=== PATIENT | female | born 1985 | race Caucasian/White ===

== ENCOUNTER 2016-11-24 05:28 | Emergency (ER) | payer OTHER ==
[~2016-11-24] VITALS: Ht 177.8 cm; Wt 113.6 kg
[~2016-11-24 05:28] MED LIST: ACNE MEDICATION; ADD MED; ADDERALL30 MG PO; AMOXICILLIN 50500 MG PO; AURALGAN 54 MG/10 ML OT; CEPHALEXIN250 M1 PO; CIPRO 500MG TA500 MG PO; CLARITIN D TAB1 TAB; CONCERTA36 MG PO; CORTISPORIN OTI10 ML OT; DOXYCYCLINE 10100 MG PO; FLEXERIL 1010 MG/TAB PO; IMPLANON68 MG ID; LOMOTIL 0.025 M1 TAB PO; LORTAB 5/500 501 TAB PO; MACROBID 1100 MG/CAP PO; MINOCYCLIN100 MG/CAP PO; MONODOX; NO HOME MEDICATIONS; NORCO 325 MG-51 TAB PO; PROMETHAZINE12.5 M5 PO; TUSS PO; ZITHROMAX 250M250 MG PO; ZOFRAN4 MG PO
[2016-11-24 05:32] VITALS: BP 154/61; TEMP 98.1
[2016-11-24] MEDS ORDERED: ULTRAM 50MG TAB50 MG PO (05:55)
[2016-11-24 06:12] VITALS: PULSE 80
== END 2016-11-24 06:12 | disposition home or self-care (01) ==
LOC: COL.ER 05:28
DX: R59.0 Localized enlarged lymph nodes (principal); H69.82 Other specified disorders of Eustachian tube, left ear; R42 Dizziness and giddiness; R51 Headache
CPT/HCPCS: J1885

== ENCOUNTER 2017-04-23 14:23 | Emergency (ER) | payer MEDICAID ==
[~2017-04-23] VITALS: Ht 175.3 cm; Wt 113.6 kg
[~2017-04-23 14:23] MED LIST changes: +ULTRAM 50MG TAB50 MG PO
[2017-04-23 14:32] VITALS: TEMP 97.8
[2017-04-23 15:28] LABS: PH 5 (5-8); SQUAMOUS EPITHELIAL None Seen /hpf; URINE APPEARANCE Clear; URINE BACTERIA None Seen /hpf; URINE BILIRUBIN Negative (NEGATIVE); URINE BLOOD Negative (NEGATIVE); URINE COLOR Yellow; URINE GLUCOSE Negative (NEGATIVE); URINE KETONE Negative (NEGATIVE); URINE RBC 0-2 /hpf; URINE UROBILINOGEN Negative (NEGATIVE); URINE WBC 0-2 /hpf
[2017-04-23 15:28] LABS: BASO % 0.2 % (0.0-2.0); EOS # 0.1 (0.0-0.7); EOS % 0.9 % (0-4.0); GRAN # 7.4 (1.4-6.5); GRAN % 70.4 % (42.2-75.2); HEMATOCRIT 40.1 % (37.0-47.0); HEMOGLOBIN 13.5 g/dl (12.5-16.0); LYMPH # 2.2 (1.2-3.4); LYMPH % 20.6 % (20.0-51.0); MEAN CELL VOLUME 88 fl (80.0-100.0); MEAN CORPUSCULAR HEMOGLOBIN 30 pg (27.0-31.0); MEAN CORPUSCULAR HGB CONC 34 g/dl (33.0-37.0); MEAN PLATELET VOLUME 10.9 fl (7.4-10.4); MONO # 0.8 (0.1-0.6); MONO % 7.7 % (1.7-9.3); PLATELET COUNT 185 K/mm3 (130-400); RED BLOOD COUNT 4.57 M/mm3 (4.10-5.30); REDCELL DISTRIBUTION WIDTH-CV 13.2 % (11.5-14.5); WHITE BLOOD COUNT 10.5 K/mm3 (4.8-10.8)
[2017-04-23 15:39] LABS: ADJUSTED CALCIUM 9.1 mg/dL (8.4-10.2); ALBUMIN 3.8 gm/dL (3.5-5.0); BILIRUBIN,TOTAL 0.4 mg/dL (0.0-1.0); CALCIUM 8.9 mg/dL (8.4-10.2); CREATININE, serum 0.75 mg/dL (0.52-1.25); POTASSIUM 3.7 mmol/L (3.4-5.0); TOTAL PROTEIN 7.3 gm/dL (6.4-8.2)
[2017-04-23 16:48] VITALS: BP 134/78; PULSE 78
== END 2017-04-23 16:49 | disposition home or self-care (01) ==
LOC: COL.ER 14:23
PROVIDERS: Emergency Medicine
DX: R10.84 Generalized abdominal pain (principal); R51 Headache; Z90.49 Acquired absence of other specified parts of digestive tract; Z98.890 Other specified postprocedural states; Z87.19 Personal history of other diseases of the digestive system
CPT/HCPCS: J1885; J2405; J7030

== ENCOUNTER 2018-02-05 16:20 | Outpatient (RCR) | payer MEDICAID | END 2018-05-06 | disposition home or self-care (01) | LOC: WSC → WSPT 16:20 → WSC 16:20 | DX: S93.402D Sprain of unspecified ligament of left ankle, subsequent encounter (principal); S93.401D Sprain of unspecified ligament of right ankle, subsequent encounter; Z87.39 Personal history of other diseases of the musculoskeletal system and connective tissue; Z79.2 Long term (current) use of antibiotics; Z79.899 Other long term (current) drug therapy | CPT/HCPCS: G8978-GP; G8979-GP ==

== ENCOUNTER 2018-02-22 21:32 | Emergency (ER) | payer MEDICAID ==
[~2018-02-22] VITALS: Ht 175.3 cm; Wt 106.8 kg
[2018-02-22 21:37] VITALS: BP 137/75; PULSE 73; TEMP 98.2
== END 2018-02-22 22:51 | disposition home or self-care (01) ==
LOC: COL.ER 21:32
DX: S05.02XA Injury of conjunctiva and corneal abrasion without foreign body, left eye, initial encounter (principal); T15.92XA Foreign body on external eye, part unspecified, left eye, initial encounter

== ENCOUNTER 2019-01-05 17:31 | Emergency (ER) | payer BC ==
[~2019-01-05] VITALS: Ht 175.3 cm; Wt 100.0 kg
[2019-01-05 17:38] VITALS: BP 139/83; TEMP 99.2
[2019-01-05 18:17] LABS: COLLECTION METHOD CLEAN CATCH
[2019-01-05 18:20] LABS: BASO % 1.1 % (0.0-2.0); EOS % 0.4 % (0-4.0); GRAN # 1.5 (1.4-6.5); GRAN % 55.9 % (42.2-75.2); HEMATOCRIT 43.4 % (37.0-47.0); HEMOGLOBIN 14.7 g/dl (12.5-16.0); LYMPH # 0.7 (1.2-3.4); LYMPH % 28.1 % (20.0-51.0); MEAN CELL VOLUME 92 fl (80.0-100.0); MEAN CORPUSCULAR HEMOGLOBIN 31 pg (27.0-31.0); MEAN CORPUSCULAR HGB CONC 34 g/dl (33.0-37.0); MEAN PLATELET VOLUME 10.8 fl (7.4-10.4); MONO # 0.4 (0.1-0.6); MONO % 14.1 % (1.7-9.3); PLATELET COUNT 102 K/mm3 (130-400); RED BLOOD COUNT 4.73 M/mm3 (4.10-5.30); REDCELL DISTRIBUTION WIDTH-CV 12.4 % (11.5-14.5)
[2019-01-05 18:24] LABS: MUCOUS Present /lpf; PH 6 (5-8); SQUAMOUS EPITHELIAL 0-2 /hpf; URINE APPEARANCE Clear; URINE BACTERIA Rare /hpf; URINE BILIRUBIN Negative (NEGATIVE); URINE BLOOD Negative (NEGATIVE); URINE COLOR Yellow; URINE GLUCOSE Negative (NEGATIVE); URINE KETONE Negative (NEGATIVE); URINE LEUKOCYTE ESTERASE Negative (NEGATIVE); URINE NITRATE Negative (NEGATIVE); URINE PROTEIN(semi-quant) 1+ (NEGATIVE); URINE RBC 0-2 /hpf; URINE UROBILINOGEN Negative (NEGATIVE)
[2019-01-05] MEDS ORDERED: ADDERALL5 MG PO (18:31)
[2019-01-05 18:34] LABS: ALBUMIN 3.8 gm/dL (3.5-5.0); BILIRUBIN,TOTAL 0.3 mg/dL (0.0-1.0); C-REACTIVE PROTEIN 4.4 mg/dL (0.0-0.9); CALCIUM 8.6 mg/dL (8.4-10.2); CREATININE, serum 0.82 (0.52-1.25); TOTAL PROTEIN 7.3 gm/dL (6.4-8.2)
[2019-01-05 20:15] VITALS: PULSE 64
== END 2019-01-05 20:15 | disposition home or self-care (01) ==
LOC: COL.ER 17:31
PROVIDERS: Physician Assistant
DX: R51 Headache (principal); R11.0 Nausea; F90.9 Attention-deficit hyperactivity disorder, unspecified type; F17.210 Nicotine dependence, cigarettes, uncomplicated; Z90.49 Acquired absence of other specified parts of digestive tract; Z88.1 Allergy status to other antibiotic agents
CPT/HCPCS: J0595; J1200; J1885; J2405; J7030

== ENCOUNTER → 2019-01-15 | Outpatient (CLI) | payer BC, MEDICAID ==
[~2019-01-15] MED LIST changes: +ADDERALL5 MG PO
== END ==
LOC: COL.RAD 07:30
DX: E01.0 Iodine-deficiency related diffuse (endemic) goiter (principal)

== ENCOUNTER → 2019-01-28 | Outpatient (CLI) | payer BC, MEDICAID ==
[~2019-01-28] VITALS: Ht 175.3 cm; Wt 98.0 kg
[~2019-01-28] MED LIST changes: +CONCERTA54 MG PO
[2019-01-28 13:49] VITALS: BP 148/90; PULSE 78
[2019-01-28 14:36] VITALS: BP 150/79; PULSE 67
== END ==
LOC: COL.RAD 13:25
DX: E07.89 Other specified disorders of thyroid (principal); E01.0 Iodine-deficiency related diffuse (endemic) goiter

== ENCOUNTER 2020-09-17 08:04 | Emergency (ER) | payer BC ==
[~2020-09-17] VITALS: Ht 177.8 cm; Wt 109.1 kg
[2020-09-17 08:12] VITALS: TEMP 98.2
[2020-09-17] MEDS ORDERED: RITALIN10 MG PO (08:41)
[2020-09-17 09:00] LABS: COLLECTION METHOD CLEAN CATCH
[2020-09-17 09:16] LABS: BASO % 0.3 % (0.0-2.0); EOS # 0.1 (0.0-0.7); EOS % 0.9 % (0-4.0); GRAN % 64.8 % (42.2-75.2); HEMATOCRIT 43.5 % (37.0-47.0); HEMOGLOBIN 14.6 g/dl (12.5-16.0); LYMPH # 1.9 (1.2-3.4); LYMPH % 24.5 % (20.0-51.0); MEAN CELL VOLUME 95 fl (80.0-100.0); MEAN CORPUSCULAR HEMOGLOBIN 32 pg (27.0-31.0); MEAN CORPUSCULAR HGB CONC 34 g/dl (33.0-37.0); MEAN PLATELET VOLUME 10.8 fl (7.4-10.4); MONO # 0.7 (0.1-0.6); MONO % 9.2 % (1.7-9.3); PLATELET COUNT 205 K/mm3 (130-400); RED BLOOD COUNT 4.59 M/mm3 (4.10-5.30); REDCELL DISTRIBUTION WIDTH-CV 12.8 % (11.5-14.5)
[2020-09-17 09:24] LABS: MUCOUS Present /lpf; PH 6 (5-8); SQUAMOUS EPITHELIAL 0-2 /hpf; URINE APPEARANCE Clear; URINE BACTERIA Rare /hpf; URINE BILIRUBIN Negative (NEGATIVE); URINE BLOOD Negative (NEGATIVE); URINE COLOR Yellow; URINE GLUCOSE Negative (NEGATIVE); URINE KETONE Trace (NEGATIVE); URINE LEUKOCYTE ESTERASE Negative (NEGATIVE); URINE NITRATE Negative (NEGATIVE); URINE PROTEIN(semi-quant) Negative (NEGATIVE); URINE UROBILINOGEN Negative (NEGATIVE)
[2020-09-17 09:31] LABS: STREP SCREEN NEGATIVE
[2020-09-17 09:32] LABS: BILIRUBIN,TOTAL 0.5 mg/dL (0.0-1.0); C-REACTIVE PROTEIN 1.1 mg/dL (0.0-0.9); CALCIUM 9.1 mg/dL (8.4-10.2); CREATININE, serum 0.75 (0.52-1.25); POTASSIUM 4.2 mmol/L (3.4-5.0)
[2020-09-17 09:59] LABS: TSH w REFLEX 2.11 uIU/mL (0.465-4.680)
[2020-09-17 11:00] VITALS: BP 146/79; PULSE 84
== END 2020-09-17 11:38 | disposition home or self-care (01) ==
LOC: COL.ER 08:04
PROVIDERS: Family Medicine
DX: E86.0 Dehydration (principal); R51.9 Headache, unspecified; F17.210 Nicotine dependence, cigarettes, uncomplicated; Z86.16 Personal history of COVID-19; Z88.1 Allergy status to other antibiotic agents
CPT/HCPCS: J0780; J1885; J2405; J7120

== ENCOUNTER 2024-06-02 15:53 | Emergency (ER) | payer BC ==
[~2024-06-02] VITALS: Ht 177.8 cm; Wt 122.7 kg
[~2024-06-02 15:53] MED LIST changes: +RITALIN10 MG PO
[2024-06-02 16:13] VITALS: TEMP 98.4
[2024-06-02] MEDS ORDERED: Tdap Vaccine 0.5 ML SYRINGE IM ONE (17:30)
[2024-06-02 17:34] VITALS: BP 134/85; PULSE 78
== END 2024-06-02 17:34 | disposition home or self-care (01) ==
LOC: COL.ER 15:53
DX: S61.012A Laceration without foreign body of left thumb without damage to nail, initial encounter (principal); Z23 Encounter for immunization; W26.0XXA Contact with knife, initial encounter